=== PATIENT | female | born 1965 | race Caucasian/White ===

== ENCOUNTER 2017-03-09 08:15 | Emergency (ER) | payer OTHER, MEDICARE ==
[~2017-03-09] VITALS: Ht 167.6 cm; Wt 77.1 kg
--- NOTE | 2017-03-09 08:36 | ED NECK/BACK PAIN COMPLAINT ---
History of Present Illness General Chief Complaint: Low Back Pain/Injury Stated Complaint: LOW BACK PAIN X 1 WEEK Source: patient Exam Limitations: no limitations Vital Signs & Intake/Output Vital Signs & Intake/Output Vital Signs Date Time Temp Pulse Resp B/P B/P Pulse O2 O2 Flow FiO2 Mean Ox Delivery Rate 03/09 1000 70 18 120/72 100 Room Air 03/09 0823 100 Room Air 03/09 0820 97.0 63 20 135/84 99 Room Air Allergies Coded Allergies: Penicillins (rash 03/09/17) Reconcile Medications Aspirin (Aspirin*) 81 MG TAB.CHEW 1 TAB PO DAILY HEART HEALTH (Reported) Diazepam (Valium) 5 MG TABLET 1 TAB PO TID SPASMS Meloxicam (Mobic) 15 MG TABLET 1 TAB PO DAILY pain [place]-3 Fatty Acids/Fish Oil (Fish Oil 1,000 MG Capsule) 340 MG-1,000 MG CAPSULE 1 CAP PO DAILY SUPPLEMENT (Reported) Triage Note: LOWER BACK PAIN THAT RADIATES INTO BILATERAL HIPS X 1 WEEK. PT STATES SHT THOUGHT THE PAIN WOULD GO AWAY USING ICY HOT AND IBUPROFEN BUT IT HASN'T HELPED Triage Nurses Notes Reviewed? yes Onset: Abrupt Duration: week(s): (1.5), constant, continues in ED Timing: recent history Quality/Severity: severe, sharpness Location: lumbar spine Method of Injury: unknown Loss of Consciousness: no loss of consciousness HPI: 51-year-old female comes into emergency room with complaints of right-sided low back pain is been going on for the past week and a half. History of previous lumbar fusion back in 2006. Patient multiple surgeries. She denies any recent trauma. Denies any urinary bowel incontinence. Pain does not shoot down her legs but just shoots across her low back. Worse with range of motion. Denies any other associated symptoms. (OZZIE MENA) Past History Travel History Traveled to [place] past 21 day No Medical History Any Pertinent Medical History? none Surgical History Surgical History: knee replacement, spinal fusion (lumbar) Psychosocial History What is your primary language Upper Sorbian Tobacco Use: Never used ETOH Use: denies use Illicit Drug Use: denies illicit drug use Family History Hx Contributory? No (OZZIE MENA) Review of Systems Review of Systems Constitutional: Reports: no symptoms. Eyes: Reports: no symptoms. Ears, Nose, Throat, Mouth: Reports: no symptoms. Respiratory: Reports: no symptoms. Cardiovascular: Reports: no symptoms. Gastrointestinal/Abdominal: Reports: no symptoms. Musculoskeletal: Reports: see HPI. Skin: Reports: no symptoms. Neurological/Psychological: Reports: no symptoms. All Other Systems: Reviewed and Negative (OZZIE MENA) Physical Exam Physical Exam General Appearance: well developed/nourished, mild distress Head: atraumatic Eyes: Bilateral: normal appearance. Ears, Nose, Throat, Mouth: hearing grossly normal, moist mucous membrane Neck: normal inspection, full range of motion Respiratory: normal breath sounds, no respiratory distress Cardiovascular: regular rate/rhythm Back: normal inspection, muscle spasm (right lower back) Extremities: normal range of motion Motor: Deficit L4 Right: No Deficit L4 Left: No Deficit L5 Right: No Deficit L5 Left: No Deficit S1 Right: No Deficit S1 Right: No DTR: Patellar: 2: L4 Right, L4 Left. Neurologic/Psych: awake, alert, oriented x 3, normal mood/affect Skin: intact, normal color, warm/dry (OZZIE MENA) Progress Differential Diagnosis: cauda equina syn, herniated disc, myofascial strain, pyelo/UTI, sciatica, spinal cord inj, thoracic outlet syn, T/L spine injury, ureterolithiasis Plan of Care: Orders Procedure Date/time Status XRY-LUMBOSACRAL SPINE 4 VIEWS 03/09 0830 Active Diagnostic Imaging: Viewed by Me: Radiology Read. Discussed w/RAD: Radiology Read. Comments: EXAM TYPE: RAD - XRY-LUMBOSACRAL SPINE 4 VIEWS EXAMINATION: XR LUMBOSACRAL SPINE CLINICAL INFORMATION: Back pain COMPARISON: X-ray lumbar spine 07/01/2013 TECHNIQUE: AP and lateral views of the lumbosacral spine were obtained. FINDINGS: There are postsurgical changes of posterior laminectomy and posterior surgical fixation at L4, L5 and S1 levels. There are transpedicular screws at these levels. Intervertebral disc spacers also noted at L4-L5 and L5-S1 levels. Significant posterior facet arthropathy of lumbar spine from L2-L3 to L5- S1 levels seen. There is grade 1 retrolisthesis of L2 on L3. The alignment of lumbar spine is otherwise unremarkable. The vertebral body height of lumbar spine is within normal limits. Small anterior degenerative osteophytes noted at L2, L3, L4 and L5 levels. There is no acute fracture or dislocation of lumbar spine. The SI joints are unremarkable. The paraspinal soft tissue is within normal limits. IMPRESSION: 1. Postsurgical changes of the posterior laminectomy and posterior fixation at L4, L5 and S1 levels. 2. Degenerative changes of lumbar spine. 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 Patient was given a shot of IM Toradol. Pending x-ray. (CLARY BRICENO,OZZIE) Departure Departure Disposition: HOME OR SELF CARE Condition: Stable Clinical Impression Primary Impression: Back muscle spasm Referrals: Physical Therapy NATY ISIDRO,TYRON (PCP/Family) Additional Instructions: Take Mobic and Valium as prescribed. Follow-up with physical therapy. Follow- up with your primary care doctor. Return if any other concerns worsening symptoms. Please go over all results of today's visit with your primary care doctor. Contact your primary care doctor to let them know you were here in the emergency room. There may be nonspecific findings which may not be related to your visit today here in the emergency room but may require further evaluation and chronic monitoring by your primary care doctor. If you had a laceration today the chance of foreign body always remains. You should follow-up with your primary care doctor for recheck in 3-5 days for a wound check. If you had an x-ray done there is a chance that a fracture could have been missed on initial read and you should follow-up with your primary care doctor for repeat x-rays if symptoms persist. If your blood pressure was elevated here in the emergency room please have rechecked by her primary care doctor within the next 48 hours by your primary care doctor. If you were prescribed a narcotic here in the emergency room or any type of controlled substances you're not allowed to drive while taking this medication or operate any type of heavy machinery. Narcotics can make you feel lightheaded dizziness nausea and can cause constipation. You may need to picker machine operator a stool softener. Thank you for choosing [facility] emergency room. Please return to the emergency room immediately if you have any other concerns worsening of symptoms. Departure Forms: Customer Survey General Discharge Information Prescriptions: Current Visit Scripts Meloxicam (Mobic) 1 TAB PO DAILY #15 TAB Diazepam (Valium) 1 TAB PO TID #20 TAB Comments 03/09/2017 10:33:28 AM Patient's pain is all reproducible and lower back. Pain is worse with range of motion. No evidence of radiculopathy on exam. No urinary bowel dysfunction. No genital numbness. No weakness in the lower extremity. Normal dorsiflexion of great toe. Gross sensation intact. No saddle paresthesia. Considered things like cauda equina have a do not feel that patient's symptoms at this point in time are consistent with this diagnosis. Patient reevaluated multiple times. Patient has no other symptoms that could be attributing to back pain. No abdominal pain, shortness of breath, chest pain. Patient is to follow-up with primary care doctor for recheck. If symptoms persist patient should be considered for an MRI of the lower back. Patient is to return immediately if any nausea vomiting, fever, weakness in the legs, urinary bowel dysfunction, abdominal pain, chest pain, shortness of breath. No weight loss. No night sweats. Pain is consistent with musculoskeletal pain due to the patient's symptoms mentioned above. (OZZIE MENA) PA/TOWER ERECTOR Co-Sign Statement Statement: ED Attending supervision documentation- [] I saw and evaluated the patient. I have also reviewed all the pertinent lab results and diagnostic results. I agree with the findings and the plan of care as documented in the PA's/TOWER ERECTOR's documentation. [X] I have reviewed the ED Record and agree with the PA's/TOWER ERECTOR's documentation. [] Additions or exceptions (if any) to the PAs/TOWER ERECTOR's note and plan are summarized below: [] (LEO FLORES DO
[2017-03-09] MEDS ORDERED: ASPIRIN81 M4 PO (09:05)
[2017-03-09] MEDS ORDERED: FISH OIL 1,0001 EACH PO (09:05)
--- NOTE | 2017-03-09 09:15 | RADIOLOGY REPORT ---
EXAMINATION: XR LUMBOSACRAL SPINE CLINICAL INFORMATION: Back pain COMPARISON: X-ray lumbar spine 07/01/2013 TECHNIQUE: AP and lateral views of the lumbosacral spine were obtained. FINDINGS: There are postsurgical changes of posterior laminectomy and posterior surgical fixation at L4, L5 and S1 levels. There are transpedicular screws at these levels. Intervertebral disc spacers also noted at L4-L5 and L5-S1 levels. Significant posterior facet arthropathy of lumbar spine from L2-L3 to L5- S1 levels seen. There is grade 1 retrolisthesis of L2 on L3. The alignment of lumbar spine is otherwise unremarkable. The vertebral body height of lumbar spine is within normal limits. Small anterior degenerative osteophytes noted at L2, L3, L4 and L5 levels. There is no acute fracture or dislocation of lumbar spine. The SI joints are unremarkable. The paraspinal soft tissue is within normal limits. IMPRESSION: 1. Postsurgical changes of the posterior laminectomy and posterior fixation at L4, L5 and S1 levels. 2. Degenerative changes of lumbar spine.
[2017-03-09] MEDS ORDERED: VALIUM5 M2 PO (09:42)
[2017-03-09] MEDS ORDERED: MOBIC15 M1 PO (09:42)
[2017-03-09 10:00] VITALS: BP 120/72
== END 2017-03-09 10:01 ==
LOC: ERH 08:15
DX: M62.830 Muscle spasm of back (principal)
CPT/HCPCS: 72110; 96372; J1885